=== PATIENT | female | born 1975 | race Caucasian/White ===

== ENCOUNTER → 2018-01-13 | Outpatient (CLI) | payer BC ==
--- NOTE | 2018-01-13 08:49 | US ---
EXAMINATION TYPE: US abdomen complete DATE OF EXAM: 01/13/2018 COMPARISON: NONE CLINICAL HISTORY: R10.13 Epigastric pain. Intermittent abdomen pain and nausea x 5 years EXAM MEASUREMENTS: Liver Length: 14.6 cm Gallbladder Wall: 0.2 cm CBD: 0.3 cm Spleen: 11.1 cm Right Kidney: 9.2 x 3.8 x 4.2 cm Left Kidney: 9.8 x 3.6 x 4.0 cm Pancreas: visualized portions wnl, tail obscured by overlying midline bowel gas Liver: wnl Gallbladder: wnl Evidence for sonographic Del Cid's sign: no CBD: wnl Spleen: wnl Right Kidney: wnl Left Kidney: wnl Upper IVC: wnl Abd Aorta: wnl The liver is homogenous. The intrahepatic portion of the IVC and proximal abdominal aorta are within normal limits. There is no evidence of cholelithiasis. Common bile duct is unremarkable. The visu alized portions of the pancreas are homogenous. The spleen is unremarkable. Kidneys are symmetric a nd free of hydronephrosis. No renal lesions are seen. IMPRESSION: Unremarkable abdominal ultrasound. No evidence of cholelithiasis or acute cholecystitis. No sonographic sequela of hepatic steatosis or hepatocellular disease. No hydronephrosis or nephrolit hiasis.
== END ==
LOC: RADUSWWP 07:34 → MERGE 07:40
PROVIDERS: ATTEND Internal Medicine Gastroenterology
DX: R10.13 Epigastric pain (principal)
CPT/HCPCS: 76700

== ENCOUNTER → 2018-02-14 | Outpatient (CLI) | payer BC ==
--- NOTE | 2018-02-15 13:59 | MM ---
Reason for exam: screening (asymptomatic). Last mammogram was performed 6 years and 9 months ago. History: Patient had first child at age 37. Cyst aspiration of the left breast, October 2010. Took hormonal contraceptives for 6 years. Physical Findings: A clinical breast exam by your physician is recommended on an annual basis and results should be correlated with mammographic findings. MG 3D Screening Mammo W/Cad Bilateral CC and MLO view(s) were taken. Prior study comparison: May 14, 2011, left diagnostic mammogram w/CAD. November 11, 2010, CAD bilateral diagnostic mammogram. The breast tissue is heterogeneously dense. This may lower the sensitivity of mammography. No significant changes when compared with prior studies. ASSESSMENT: Negative, BI-RAD 1 RECOMMENDATION: Routine screening mammogram of both breasts in 1 year.
== END | disposition home or self-care (01) ==
LOC: RADMAMWWP 11:43
PROVIDERS: ATTEND Obstetrics & Gynecology
DX: Z12.31 Encounter for screening mammogram for malignant neoplasm of breast (principal)
CPT/HCPCS: 77063; 77067

== ENCOUNTER → 2019-08-03 | Outpatient (CLI) | payer BC ==
--- NOTE | 2019-08-03 12:05 | MM ---
Reason for exam: screening (asymptomatic). Last mammogram was performed 1 year and 6 months ago. History: Patient had first child at age 37. Cyst aspiration of the left breast, October 2010. Took hormonal contraceptives for 6 years. Physical Findings: A clinical breast exam by your physician is recommended on an annual basis and results should be correlated with mammographic findings. MG 3D Screening Mammo W/Cad Bilateral CC and MLO view(s) were taken. XCCL view(s) were taken of the right breast. Prior study comparison: February 14, 2018, bilateral MG 3d screening mammo w/cad. May 14, 2011, left diagnostic mammogram w/CAD. The breast tissue is heterogeneously dense. This may lower the sensitivity of mammography. Asymmetric breast tissue left breast posterior 5cm on CC view 12 o'clock. This finding is changed when compared with previous exams. ASSESSMENT: Incomplete: need additional imaging evaluation, BI-RAD 0 RECOMMENDATION: Ultrasound of the left breast. [facility] will attempt to contact patient to return for ultrasound.
== END | disposition home or self-care (01) ==
LOC: RADMAMWWP 07:19
PROVIDERS: ATTEND Obstetrics & Gynecology
DX: Z12.31 Encounter for screening mammogram for malignant neoplasm of breast (principal)
CPT/HCPCS: 77063; 77067

== ENCOUNTER → 2019-08-15 | Outpatient (CLI) | payer BC ==
--- NOTE | 2019-08-15 08:48 | USB ---
Reason for exam: additional evaluation requested from abnormal screening. History: Patient had first child at age 37. Cyst aspiration of the left breast, October 2010. Took hormonal contraceptives for 6 years. Physical Findings: Nurse Summary: Patient complains of intermittent shooting pains bilateral breasts x 5 years, bilateral nodular thickening (nurse mj). US Breast Workup LT Left complete breast ultrasound includes all four quadrants, the retroareolar region and axilla. Finding demonstrates a 0.9 x 0.7 x 0.7cm hypoechoic, shadowing lesion at 12 o'clock dense tissues verus mass and a 0.9 x 0.8cm oval, cystic, hypoechoic, benign cluster at 12 o'clock, this only becomes more apparent with harmonics enabled. These results were verbally communicated with the patient and result sheet given to the patient on 08/15/19. ASSESSMENT: Incomplete: need additional imaging evaluation, BI-RAD 0 RECOMMENDATION: Special view mammogram of the left breast. (3D)
--- NOTE | 2019-08-15 08:49 | MM ---
Reason for exam: additional evaluation requested from abnormal screening. Last mammogram was performed less than 1 month ago. History: Patient had first child at age 37. Cyst aspiration of the left breast, October 2010. Took hormonal contraceptives for 6 years. MG 3D Work Up W/Cad LT Spot compression CC, spot compression MLO, LM, CCRM, and CCRL view(s) were taken of the left breast. Prior study comparison: August 03, 2019, bilateral MG 3d screening mammo w/cad. February 14, 2018, bilateral MG 3d screening mammo w/cad. The breast tissue is heterogeneously dense. This may lower the sensitivity of mammography. The questioned focal asymmetry does not persist on additional views. Given appearance on screening, 6 month follow up recommended. These results were verbally communicated with the patient and result sheet given to the patient on 08/15/19. ASSESSMENT: Probably benign, BI-RAD 3 RECOMMENDATION: Follow-up diagnostic mammogram and ultrasound of the left breast in 6 months.
== END | disposition home or self-care (01) ==
LOC: RADUSWWP 06:59
PROVIDERS: ATTEND Obstetrics & Gynecology
DX: R92.8 Other abnormal and inconclusive findings on diagnostic imaging of breast (principal)
CPT/HCPCS: 77061; 77065

== ENCOUNTER → 2020-03-14 | Outpatient (CLI) | payer BC ==
--- NOTE | 2020-03-15 08:59 | MM ---
Reason for exam: follow-up at short interval from prior study. Last mammogram was performed 7 months ago. History: Patient had first child at age 37. Cyst aspiration of the left breast, October 2010. Took hormonal contraceptives for 6 years. Physical Findings: Nurse did not find any significant physical abnormalities on exam. MG 3D Diag Mammo W/Cad LT CC and MLO view(s) were taken of the left breast. Prior study comparison: August 15, 2019, left breast MG 3d work up w/cad LT. August 03, 2019, bilateral MG 3d screening mammo w/cad. The breast tissue is heterogeneously dense. This may lower the sensitivity of mammography. There is no discrete abnormality including area of concern. No significant new findings when compared with previous films. These results were verbally communicated with the patient and result sheet given to the patient on 03/14/20. ASSESSMENT: Incomplete: need additional imaging evaluation, BI-RAD 0 RECOMMENDATION: Ultrasound of the left breast.
--- NOTE | 2020-03-15 09:00 | USB ---
Reason for exam: follow-up at short interval from prior study. History: Patient had first child at age 37. Cyst aspiration of the left breast, October 2010. Took hormonal contraceptives for 6 years. US Breast Limited LT Left limited breast ultrasound including focal area of concern, retroareolar and axilla demonstrates a 0.9 x 0.6 x 0.3cm cystic lesion at 12 o'clock. These results were verbally communicated with the patient and result sheet given to the patient on 03/14/20. ASSESSMENT: Benign, BI-RAD 2 RECOMMENDATION: Return to routine screening mammogram schedule for both breasts.
== END | disposition home or self-care (01) ==
LOC: RADMAMWWP 14:53
PROVIDERS: ATTEND Obstetrics & Gynecology
DX: R92.8 Other abnormal and inconclusive findings on diagnostic imaging of breast (principal)
CPT/HCPCS: 77061; 77065

== ENCOUNTER → 2020-08-30 | Outpatient (CLI) | payer BC ==
--- NOTE | 2020-09-03 10:20 | MM ---
Reason for exam: screening (asymptomatic). Last mammogram was performed 6 months ago. History: Patient had first child at age 37. Cyst aspiration of the left breast, October 2010. Took hormonal contraceptives for 6 years. Physical Findings: A clinical breast exam by your physician is recommended on an annual basis and results should be correlated with mammographic findings. MG 3D Screening Mammo W/Cad Bilateral CC and MLO view(s) were taken. Prior study comparison: August 03, 2019, bilateral MG 3d screening mammo w/cad. February 14, 2018, bilateral MG 3d screening mammo w/cad. The breast tissue is heterogeneously dense. This may lower the sensitivity of mammography. No significant changes when compared with prior studies. ASSESSMENT: Incomplete: need additional imaging evaluation, BI-RAD 0 RECOMMENDATION: Ultrasound of the left breast. (for pain and clinical symptoms) [facility] will attempt to contact patient to return for ultrasound.
== END ==
LOC: RADMAMWWP 15:51
PROVIDERS: ATTEND Obstetrics & Gynecology
DX: Z12.31 Encounter for screening mammogram for malignant neoplasm of breast (principal)
CPT/HCPCS: 77063; 77067

== ENCOUNTER → 2020-09-12 | Outpatient (CLI) | payer BC ==
--- NOTE | 2020-09-12 08:48 | USB ---
Reason for exam: additional evaluation requested from abnormal screening. History: Patient had first child at age 37. Cyst aspiration of the left breast, October 2010. Took hormonal contraceptives for 6 years. Physical Findings: Nurse Summary: Patient complains of left breast pinching pain (nurse mj). US Breast Workup LT Left complete breast ultrasound includes all four quadrants, the retroareolar region and axilla. Finding demonstrates a 8 x 4 x 9mm lobular, hypoechoic lesion at 12 o'clock, a 4 x 3 x 4mm lobular, mixed, hypoechoic lesion at 4 o'clock and a 5 x 3 x 6mm oval, cystic lesion at 6 o'clock. Very dense breast tissue. These results were verbally communicated with the patient and result sheet given to the patient on 09/12/20. ASSESSMENT: Probably benign, BI-RAD 3 RECOMMENDATION: Ultrasound of the left breast in 6 months. Manage patient on a clinical basis.
== END ==
LOC: RADUSWWP 07:38
PROVIDERS: ATTEND Obstetrics & Gynecology
DX: R92.8 Other abnormal and inconclusive findings on diagnostic imaging of breast (principal)

== ENCOUNTER → 2021-04-28 | Outpatient (CLI) | payer BC ==
--- NOTE | 2021-04-28 10:36 | USB ---
Reason for exam: clinical finding. History: Patient had first child at age 37. Cyst aspiration of the left breast, October 2010. Took hormonal contraceptives for 6 years. Indicated problem(s): pain in the left breast. Physical Findings: Nurse did not find any significant physical abnormalities on exam. US Breast LT Technologist: Ally Wilson Left complete breast ultrasound includes all four quadrants, the retroareolar region and axilla. Finding demonstrates a 0.9 x 0.5 x 0.4cm cystic cluster at 12 o'clock, a 0.4 x 0.3 x 0.2cm cystic lesion at 1 o'clock, a 0.7 x 0.9 x 0.3cm cystic lesion at 2 o'clock, a 0.3 x 0.5 x 0.3cm cystic lesion at 5 o'clock and a 0.4 x 0.4 x 0.3cm cystic lesion at 4 o'clock. These results were verbally communicated with the patient and result sheet given to the patient on 04/28/21. ASSESSMENT: Benign, BI-RAD 2 RECOMMENDATION: Return to routine screening mammogram schedule for both breasts. Back on schedule for August 2021.
== END | disposition home or self-care (01) ==
LOC: RADUSWWP 09:26
PROVIDERS: ATTEND Family Medicine
DX: N64.89 Other specified disorders of breast (principal)

== ENCOUNTER → 2021-09-11 | Outpatient (CLI) | payer BC ==
--- NOTE | 2021-09-11 14:23 | MM ---
Reason for exam: screening (asymptomatic). Last mammogram was performed 1 year ago. History: Patient had first child at age 37. Cyst aspiration of the left breast, October 2010. Took hormonal contraceptives for 6 years. Physical Findings: A clinical breast exam by your physician is recommended on an annual basis and results should be correlated with mammographic findings. MG 3D Screening Mammo W/Cad Bilateral CC and MLO view(s) were taken. Prior study comparison: August 30, 2020, bilateral MG 3d screening mammo w/cad. March 14, 2020, left breast MG 3d diag mammo w/cad LT. The breast tissue is heterogeneously dense. This may lower the sensitivity of mammography. There is no discrete abnormality. ASSESSMENT: Negative, BI-RAD 1 RECOMMENDATION: Routine screening mammogram of both breasts in 1 year.
== END | disposition home or self-care (01) ==
LOC: RADMAMWWP 07:01
PROVIDERS: ATTEND Family Medicine
DX: Z12.31 Encounter for screening mammogram for malignant neoplasm of breast (principal)
CPT/HCPCS: 77063; 77067

== ENCOUNTER → 2022-09-14 | Outpatient (CLI) | payer BC ==
--- NOTE | 2022-09-15 08:33 | MM ---
Reason for Exam: Screening (asymptomatic). Last screening mammogram was performed 12 month(s) ago. Patient History: Menarche at age 17. First Full-Term at age 37. Late child-bearing (after 30). Hysterectomy at age 47. Patient used Hormonal Contraceptives for 6 years. 10/2010, Cyst Aspiration on the Left side. Risk Values: Nadja 5 year model risk: 1.0%. NCI Lifetime model risk: 11.9%. Prior Study Comparison: 03/14/2020 Left Diagnostic Mammogram, [facility]. 08/30/2020 Bilateral Screening Mammogram, [facility]. 09/11/2021 Bilateral Screening Mammogram, [facility]. Tissue Density: The breast tissue is heterogeneously dense. This may lower the sensitivity of mammography. Findings: Analyzed By CAD. There is no suspicious group of microcalcifications or new suspicious mass in either breast. Overall Assessment: Negative, BI-RAD 1 Management: Screening Mammogram of both breasts in 1 year. A clinical breast exam by your physician is recommended on an annual basis and results should be correlated with mammographic findings. Electronically signed and approved by: Joni Jean D.O.
== END | disposition home or self-care (01) ==
LOC: RADMAMWWP 07:01
PROVIDERS: ATTEND Family Medicine
DX: Z12.31 Encounter for screening mammogram for malignant neoplasm of breast (principal)
CPT/HCPCS: 77063; 77067